=== PATIENT | male | born 1960 | race Caucasian/White ===

== ENCOUNTER 2017-04-10 07:58 | Day surgery (SDC) | payer BC ==
--- NOTE | ~2017-04-10 | EGD ---
EGD REPORT [facility] [address] [id number] NAME: KANWAL MUNROE : 58 STATUS : REG [facility]#: [id number] AGE: 56 ADM/REG DATE : 04/10/17 MR#: [id number] REPORT SERV DATE: 04/10/17 DICTATED BY: MEETA LOPES DATE: 04/10/17 REPORT STATUS : Draft [facility]ANS[facility]: [facility] DATE: 04/10/17 End[facility] Center Patient Name: Kanwal Munroe Date of : 1960 Attending MD: MEETA LOPES MD Procedure Date No Time: 04/10/2017 Procedure: Colonoscopy Indications: Screening for colorectal malignant neoplasm Referring MD: Pawan Ellis Medicines: Propofol per Anesthesia Complications: No immediate complications. Procedure: Pre-Anesthesia Assessment: - ASA Grade Assessment: III - A patient with severe systemic disease. After I obtained informed consent, the scope was passed under direct vision. Throughout the procedure, the patient's blood pressure, pulse, and oxygen saturations were monitored continuously. The CF [id number] was introduced through the anus and advanced to the terminal ileum. The colonoscopy was performed without difficulty. The patient tolerated the procedure well. The quality of the bowel preparation was good. Findings: The perianal and digital rectal examinations were normal. The terminal ileum appeared normal. The colon (entire examined portion) appeared normal. Three sessile polyps were found in the ascending colon. The polyps were 4 to 20 mm in size. These polyps were removed with a piecemeal technique using a hot snare. Resection and retrieval were complete. Three sessile polyps were found in the ascending colon. The polyps were 2 to 3 mm in size. These polyps were removed with a cold biopsy forceps. Resection and retrieval were complete. Three sessile polyps were found in the proximal transverse colon. The polyps were 5 to 7 mm in size. These polyps were removed with a hot snare. Resection and retrieval were complete. A sessile polyp was found in the distal transverse colon. The polyp was 6 mm in size. The polyp was removed with a hot snare. Resection and retrieval were complete. Two sessile polyps were found in the distal transverse colon. The polyps were 4 to 5 mm in size. These polyps were removed with a cold snare. Resection and retrieval were complete. Multiple small and large-mouthed diverticula were found in the recto-sigmoid colon, in the sigmoid colon and in the descending colon. A sessile polyp was found in the rectum. The polyp was 8 mm in size. The EGD REPORT [address] [address] NAME: KANWAL MUNROE : [birth year] STATUS : REG [facility]#: [id number] AGE: 56 ADM/REG DATE : 04/10/17 MR#: [id number] REPORT SERV DATE: 04/10/17 DICTATED BY: MEETA LOPES DATE: 04/10/17 REPORT STATUS : Draft TRANSCRIBED BY: [employer] DATE: 04/10/17 polyp was removed with a hot snare. Resection and retrieval were complete. Non-bleeding internal hemorrhoids were found during retroflexion and were mild, medium-sized and Grade I (internal hemorrhoids that do not prolapse). Impression: - The examined portion of the ileum was normal. - The entire examined colon is normal. - Three 4 to 20 mm polyps in the ascending colon. Resected and retrieved. - Three 2 to 3 mm polyps in the ascending colon. Resected and retrieved. - Three 5 to 7 mm polyps in the proximal transverse colon. Resected and retrieved. - One 6 mm polyp in the distal transverse colon. Resected and retrieved. - Two 4 to 5 mm polyps in the distal transverse colon. Resected and retrieved. - Diverticulosis in the recto-sigmoid colon, in the sigmoid colon and in the descending colon. - One 8 mm polyp in the rectum. Resected and retrieved. - Non-bleeding internal hemorrhoids. Recommendation: - Patient has a contact number available for emergencies. The signs and symptoms of potential delayed complications were discussed with the patient. Return to normal activities tomorrow. Written discharge instructions were provided to the patient. - Return to previous diet. - Continue present medications. - Await pathology results. - Repeat colonoscopy in 1 year for surveillance after piecemeal polypectomy. - Repeat colonoscopy in 1 year for surveillance of multiple polyps. - Return to my office as previously scheduled. - Discharge patient to home. Procedure Code(s): --- Professional --- 86905, Colonoscopy, flexible, proximal to splenic flexure; with removal of tumor(s), polyp(s), or other lesion(s) by snare technique 45223, 59, Colonoscopy, flexible, proximal to splenic flexure; with biopsy, single or multiple Diagnosis Code(s): --- Professional --- K64.0, First degree hemorrhoids EGD REPORT [address] [address] NAME: KANWAL MUNROE : 58 STATUS : REG [facility]#: [id number] AGE: 56 ADM/REG DATE : 04/10/17 MR#: [id number] REPORT SERV DATE: 04/10/17 DICTATED BY: MEETA LOPES DATE: 04/10/17 REPORT STATUS : Draft TRANSCRIBED BY: [employer] DATE: 04/10/17 K57.30, Diverticulosis of large intestine without perforation or abscess without bleeding K62.1, Rectal polyp D12.3, Benign neoplasm of transverse colon D12.2, Benign neoplasm of ascending colon Z12.11, Encounter for screening for malignant neoplasm of colon CPT copyright 2013 [employer]. All rights reserved. The codes documented in this report are preliminary and upon machine zipper trimmer review may be revised to meet current compliance requirements. Meeta Lopes MD MEETA LOPES MD 04/10/2017 10:47 AM This report has been signed electronically. Number of Addenda: 0 Note Initiated On: 04/10/2017 9:29 AM Scope Withdrawal Time 0 hours 34 minutes 47 seconds [id number] [id number]
[~2017-04-10 07:58] MED LIST: ASAB PO; C5 PO; COZ50 PO; GLUCPH PO; IBU400 PO; JANTOVEN6 MG; MACROBID PO
[2017-04-10 08:22] LABS: INTERNATIONAL NORMAL RATI 1.3 UNITS (-); PROTIME (NOT ORD) 16.4 SEC (12.0-14.5)
== END 2017-04-10 23:59 | disposition home health service (06) ==
LOC: DMU 07:58
PROVIDERS: Anesthesiology; Internal Medicine Gastroenterology
PROC: 0DBL8ZZ Excision of Transverse Colon, Via Natural or Artificial Opening Endoscopic (ICD-10-PCS; 2017-04-10)
PROC: 0DBK8ZX Excision of Ascending Colon, Via Natural or Artificial Opening Endoscopic, Diagnostic (ICD-10-PCS; 2017-04-10)
PROC: 0DBK8ZZ Excision of Ascending Colon, Via Natural or Artificial Opening Endoscopic (ICD-10-PCS; principal; 2017-04-10 09:00)
PROC: 0DBP8ZZ Excision of Rectum, Via Natural or Artificial Opening Endoscopic (ICD-10-PCS; 2017-04-10 09:00)
DX: Z12.11 Encounter for screening for malignant neoplasm of colon (principal); D12.3 Benign neoplasm of transverse colon; D12.2 Benign neoplasm of ascending colon; D12.8 Benign neoplasm of rectum; K57.30 Diverticulosis of large intestine without perforation or abscess without bleeding; K64.0 First degree hemorrhoids; I48.91 Unspecified atrial fibrillation; Z86.73 Personal history of transient ischemic attack (TIA), and cerebral infarction without residual deficits; G47.33 Obstructive sleep apnea (adult) (pediatric); I10 Essential (primary) hypertension; E11.9 Type 2 diabetes mellitus without complications; Z79.01 Long term (current) use of anticoagulants; Z79.899 Other long term (current) drug therapy; Z87.891 Personal history of nicotine dependence; Z87.442 Personal history of urinary calculi; Z98.890 Other specified postprocedural states
CPT/HCPCS: 82962; 85610; 88305